=== PATIENT | male | born 1970 | race Caucasian/White ===

== ENCOUNTER 2020-06-04 14:00 | Outpatient (CLI) | payer OTHER, SELFPAY | END 2020-06-04 14:01 | disposition home or self-care (01) | LOC: ANHSURGERY 14:03 | PROVIDERS: PCP Internal Medicine; Visit Provider Urology | DX: R31.0 Gross hematuria (principal); Z01.818 Encounter for other preprocedural examination | CPT/HCPCS: 87086 ==

== ENCOUNTER → 2020-06-05 00:37 | Outpatient (CLI) | payer OTHER, SELFPAY ==
[2020-06-05 20:47] LABS: SARS-CoV-2 RNA PCR Negative
== END ==
PROVIDERS: PCP Internal Medicine; Visit Provider Urology
DX: Z01.812 Encounter for preprocedural laboratory examination (principal); Z20.822 Contact with and (suspected) exposure to COVID-19
CPT/HCPCS: C9803; U0003; U0005

== ENCOUNTER 2020-06-08 01:52 | Day surgery (SDC) | payer OTHER, SELFPAY ==
[2020-06-01 15:08] VITALS: BMI 24.9
--- NOTE | 2020-06-07 16:10 | WPDANESEPPF ---
Anes - Initial Pre Proc Eval Procedure: Operation Date: 06/08/20 14:00 Proposed Procedures p Meatotomy, - Amish Villegas MD s Flexible Cystoscopy - Amish Villegas MD Date/Time: 06/07/20 16:10 Surgeon: Amish Villegas MD Pre Op Diagnosis: meatal stenosis, gross hematuria Patient Data Age: 50 Gender: M Height: 1.65 m Weight: 68 kg Allergies Allergy/AdvReac Type Severity Reaction Status Date / Time aspirin Allergy Severe Anaphylactic Verified 06/08/20 11:57 Shock NSAIDS (Non-Steroidal Allergy Severe Anaphylactic Verified 06/08/20 11:57 Anti-Inflamma Shock Sulfa (Sulfonamide Allergy Severe Anaphylactic Verified 06/08/20 11:57 Antibiotics) Shock latex Allergy Mild Itching Verified 06/08/20 11:57 Home Medications Medication Instructions Recorded Confirmed Type albuterol sulfate 1 puff INHALATION QID PRN 06/01/20 06/01/20 History multivitamin 1 tablet PO DAILY 06/01/20 06/08/20 History Patient hx anesthesia problems: none Family hx anesthesia problems: none [facility] Past Medical History Medical History (Updated 06/07/20 @ 16:11 by Tadeo Wen MD) Arthritis Asthma Social History Social History Smoking status: Never smoker Alcohol intake: current Alcohol use details: RARE Substance use: never Substance use type: does not use Living arrangements: alone Spiritual care concerns: No Anes - Eval Final PreProcedure Day of Procedure 06/07/20 16:10 Patient weight: normal Heart: regular rate and rhythm Lungs: clear to auscultation and normal air movement Airway: Mallampati scale class II Neurological: alert and oriented Last oral intake: >/= 8 hours ASA classification: II Emergent: no Anesthetic plan: proceed Anesthesia type and monitoring: general LMA Informed Consent: The patient's anesthetic plan and its attendant risks and benefits were discussed with the patient/family/POA. Questions were solicited and answers provided to the satisfaction of the patient/family/POA.
[2020-06-08] VITALS (7 sets, daily range): BP systolic 97–141; BP diastolic 61–97; PULSE 53–65; RESP 10–16; TEMP 37–37.3; O2SAT 99–100
--- NOTE | 2020-06-08 11:47 | WPDHPUPDATE1 ---
History and Physical Update Update Date/Time: 06/08/20 11:47 History and Physical has been reviewed, including an updated exam of the patient. There are NO changes in the patient's condition. Risks, benefits, and alternatives have been discussed and questions answered. Patient agrees to proceed with procedure.
[2020-06-08] MEDS: LACTATED RINGERS 1,000 ML 30 ML IV CONT (12:19)
[2020-06-08] MEDS: ceFAZolin 2 GM/D5W 50 ML 2 GM/50 ML BAG IVPB (12:49)
[2020-06-08] MEDS: BUPIVACAINE HCL 0.5% PF 30 ML VIAL INFILTRATE (13:11)
[2020-06-08] MEDS: NEOMYCIN/POLYMYXIN/BACITRACIN OINTMENT 15 GM TUBE 1 APPLIC TOPICAL (13:20)
--- NOTE | 2020-06-08 13:21 | P.OP_ITS ---
Procedure Note - Detailed Date of procedure: 06/08/20 Pre-op diagnosis: meatal stenosis, gross hematuria Post-op diagnosis: same Procedure performed: Meatotomy, urethral dilation, flexible cystoscopy Description of procedure: Patient is taken the operative suite and correctly identified. Once anesthesia was obtained was placed in supine position and prepped and draped usual sterile fashion. Patient has a very tight urethral meatus. We went ahead and incised this. We reapproximated the mucosa using 3 0 chromic in interrupted fashion. We then calibrated urethral opening up to 20 Canadian without difficulty. Sixteen Canadian scope was then inserted into the urethra. There were no proximal strictures noted. Prostate nonobstructive. Bladder is inspected in its entirety. There are no tumors or irregularities noted at this time. Scope was removed. We anesthetized doing a penile block with 1% lidocaine. Patient is taken recovery room stable condition. He will follow up in the office 2-3 weeks time. Anesthesia: GLMA Surgeon: Amish Villegas MD Drains: No Packing: No Pathology: none sent Complications: No immediate complications Condition: stable Disposition: PACU
--- NOTE | 2020-06-08 15:13 | SUR.PHASEII ---
PATIENT VOIDED X 1 WITH BLOOD ONLY AT END OF STREAM; MINOR BURNING.
== END 2020-06-08 15:02 | disposition home or self-care (01) ==
PROVIDERS: PCP Internal Medicine; Visit Provider Urology
PROC: (CPT 54161; principal; 2020-06-08 14:00)
PROC: 0TJB8ZZ Inspection of Bladder, Via Natural or Artificial Opening Endoscopic (ICD-10-PCS; CPT 52000; 2020-06-08 14:00)
DX: N35.811 Other urethral stricture, male, meatal (principal); R31.0 Gross hematuria; J45.909 Unspecified asthma, uncomplicated; Z79.51 Long term (current) use of inhaled steroids
CPT/HCPCS: 52281; A9270; J0690; J1100; J2250; J2405; J2704; J3010; J7030; J7120

== ENCOUNTER 2024-05-12 02:08 | Day surgery (SDC) | payer OTHER, SELFPAY ==
[2024-05-03 15:59] VITALS: BMI 25.8
--- OUTSIDE RECORDS SUMMARY | 2024-05-12 02:11 | XMS_ITS | Clinical Summary ---
Author Organization [facility] Address [address] [place] [address] Phone Care Team Providers Care Integration Engineer Name Role Phone Unavailable Primary Care Provider Unavailabl e Allergies Active Allergy Reactions Criticality Noted Date Comments Ibuprofen Other (see Comments) Swollen face, lips Medications Acetaminophen (TYLENOL PO) Take by mouth as needed. 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 Gender Identity Not on file Sexual Orientation Not on file Plan of Treatment Health Maintenance Due Date Last Done Comments Hepatitis C Virus (HCV) Screening 1970 TdaP Immunization 1970 Hepatitis B Immunization (1 of 3 - 19+ 3-dose series) 04/30/1990 Colonoscopy 04/30/2016 Colorectal Cancer Screening 04/30/2016 Cologuard 04/30/2021 Immunochemical Fecal Occult Blood 04/30/2021 Pneumococcal Immunization (5 0+ years) (1 of 1 - PCV) 04/30/2021 Zoster Immunization (1 of 2) 04/30/2021 Influenza Immunization (#1) 2023 SARS-COV-2 Immunization ( - 2023- season) 2023 Respiratory Syncytial Virus (RSV) Immunization (Adult) (1 - 1-dose 75+ series) 04/30/2046 Meningococcal Immunization (ACWY) Aged Out No longer eligible based on patient's age to complete this topic Pneumococcal Immunization Combined Aged Out No longer eligible based on patient's age to complete this topic Rotavirus Immunization Aged Out No lo nger eligible based on patient's age to complete this topic
--- OUTSIDE RECORDS SUMMARY | 2024-05-12 02:11 | XMS_ITS | Clinical Summary ---
Author Organization [facility] Address [address] [place] [id number] Care Team Providers Care Leverman Name Role Phone Unavailable Primary Care Provider Unavailabl e Social History Tobacco Use Types Packs/Day Years Used Date Smoking Tobacco: Never Assessed Sex and Gender Information Value Date Recorded Sex Assigned at Not on file Legal Sex Male 4:33 PM CDT Gender Identity Not on file Sexual Orientation Not on file Plan of Treatment Health Maintenance Due Date Last Done Comments Colorectal Cancer Screening Colonoscopy (10 Years) 1971 Annual Physical 04/30/1974 Hepatitis C 04/30/1989 DTaP, Tdap and Td Vaccines ( 1 - Tdap) 04/30/1990 Hepatitis B Vaccines (1 of 3 - 19+ 3-dose series) 04/30/1990 Zoster Vaccines (1 of 2) 04/30/2021 COVID-19 Vaccine (1 - 2023-2 5 season) 2023 Meningococcal B Vaccine Aged Out No l onger eligible based on patient's age to complete this topic Meningococcal Vaccine Aged Out No alexys juan eligible based on patient's age to complete this topic Pneumococcal Vaccine: Pediat rics (0 to 5 Years) and At-Risk Patients (6 to 64 Years) Aged Out No longer eligible b ased on patient's age to complete this topic RSV Immunizations Under 20 Months Aged Out No longer eligible based on patient's age to complete this topic
[2024-05-12 11:39] VITALS: BP 173/103; PULSE 62; RESP 18; TEMP 36.6; O2SAT 100; BMI 27.5
[2024-05-12] MEDS: LACTATED RINGERS 1,000 ML 150 ML IV CONT (11:49)
--- NOTE | 2024-05-12 12:03 | P.PNAN_ITS ---
Anes - Initial Pre Proc Eval Procedure: Operation Date: 05/12/24 13:00 Proposed Procedures p Colonoscopy - Jeremie Mishra MD Date/Time: 05/12/24 12:03 Surgeon: Jeremie Mishra MD Pre Op Diagnosis: screening colon/rectum, abn findings on medical ex Patient Data Age: 54 Gender: M Height: 1.65 m Weight: 75.1 kg Last Vital Signs Temp 36.6 C 05/12/24 11:39 Pulse 62 05/12/24 11:39 Resp 18 05/12/24 11:39 BP 173/103 H 05/12/24 11:39 Pulse Ox 100 05/12/24 11:39 O2 Del Method Room Air 05/12/24 11:39 Allergies Allergy/AdvReac Type Severity Reaction Status Date / Time aspirin Allergy Severe Anaphylactic Verified 05/12/24 11:39 Shock NSAIDS (Non-Steroidal Allergy Severe Anaphylactic Verified 05/12/24 11:39 Anti-Inflamma Shock Sulfa (Sulfonamide Allergy Severe Anaphylactic Verified 05/12/24 11:39 Antibiotics) Shock latex Allergy Mild Itching Verified 05/12/24 11:39 Home Medications ?Medication ?Instructions ?Recorded ?Confirmed ?Type albuterol sulfate 90 mcg/actuation 1 puff inhalation QID PRN 06/01/20 05/03/24 History aerosol inhaler Bronchospasm multivitamin 1 tablet PO DAILY 06/01/20 05/12/24 History cholecalciferol (vitamin D3) 25 25 mcg PO DAILY 02/11/24 05/12/24 History mcg (1,000 unit) capsule zinc gluconate 30 mg tablet 30 mg PO DAILY 02/11/24 05/12/24 History atorvastatin 20 mg tablet (Lipitor) 20 mg PO QHS #90 tabs 04/21/24 05/12/24 Rx omeprazole 20 mg capsule,delayed 20 mg PO DAILY 05/03/24 05/12/24 History release Patient hx anesthesia problems: none Family hx anesthesia problems: none Results Review: All pre-operative results and documents have been reviewed as part of the pre- operative evaluation. [facility] Past Medical History Medical History Allergies Arthritis Asthma Surgical History Surgical History History of meatotomy of ureter Family History Family History Father Diabetes mellitus Cerebrovascular accident Mother Hypertension Social History Social History Social History: 02/26/24 very confident with insurance cards Smoking status: Never smoker Alcohol intake: never Alcohol use details: RARE Substance use: never Substance use type: does not use Do You Feel Safe in your Home?: Yes Lack of Transportation: No Lack of Food: Never True Current Housing: I Have Housing Concerned About Future Housing: No Difficulty Paying Gas/Electric Bills: No Difficulty Paying for Meds: No Currently Unemployed: Decline to Answer Education: Master's Degree or Higher Difficulty w/ Childcare or Family Care: No Living arrangements: alone Occupation/Education: occupation Spiritual care concerns: No Agree to blood products: Yes Anes - Eval Final PreProcedure Day of Procedure 05/12/24 12:03 Patient weight: overweight Heart: regular rate and rhythm Lungs: clear to auscultation Airway: Mallampati scale class II Neurological: alert and oriented Last oral intake: >/= 8 hours ASA classification: II Emergent: no Anesthetic plan: proceed Anesthesia type and monitoring: general GIVS and standard monitoring Results Review: All pre-operative results and documents have been reviewed as part of the pre- operative evaluation. Patient states exercise induced asthma, avid cyclist, rarely needs to use inhaler. Informed Consent: The patient's anesthetic plan and its attendant risks and benefits were discussed with the patient/family/POA. Questions were solicited and answers provided to the satisfaction of the patient/family/POA.
--- NOTE | 2024-05-12 12:04 | PM.IMHP ---
H&P: HPI History of Present Illness Date/Time: 05/12/24 12:04 Chief Complaint: Screening colonoscopy Narrative: This is the patient's first colonoscopy. There are no GI symptoms and there is no family history of colorectal cancer. Review of Systems Review of Systems: All systems reviewed & are unremarkable except as noted in HPI and below PMFSH Past Medical History Medical History Allergies Arthritis Asthma Surgical History Surgical History History of meatotomy of ureter Family History Family History Father Diabetes mellitus Cerebrovascular accident Mother Hypertension Social History Social History Social History: 02/26/24 very confident with insurance cards Smoking status: Never smoker Alcohol intake: never Alcohol use details: RARE Substance use: never Substance use type: does not use Do You Feel Safe in your Home?: Yes Lack of Transportation: No Lack of Food: Never True Current Housing: I Have Housing Concerned About Future Housing: No Difficulty Paying Gas/Electric Bills: No Difficulty Paying for Meds: No Currently Unemployed: Decline to Answer Education: Master's Degree or Higher Difficulty w/ Childcare or Family Care: No Living arrangements: alone Occupation/Education: occupation Spiritual care concerns: No Agree to blood products: Yes Meds Home Medications and Allergies Home Medications ?Medication ?Instructions ?Recorded ?Confirmed ?Type albuterol sulfate 90 mcg/actuation 1 puff inhalation QID PRN 06/01/20 05/03/24 History aerosol inhaler Bronchospasm multivitamin 1 tablet PO DAILY 06/01/20 05/12/24 History cholecalciferol (vitamin D3) 25 25 mcg PO DAILY 02/11/24 05/12/24 History mcg (1,000 unit) capsule zinc gluconate 30 mg tablet 30 mg PO DAILY 02/11/24 05/12/24 History atorvastatin 20 mg tablet (Lipitor) 20 mg PO QHS #90 tabs 04/21/24 05/12/24 Rx omeprazole 20 mg capsule,delayed 20 mg PO DAILY 05/03/24 05/12/24 History release Allergies Allergy/AdvReac Type Severity Reaction Status Date / Time aspirin Allergy Severe Anaphylactic Verified 05/12/24 11:39 Shock NSAIDS (Non-Steroidal Allergy Severe Anaphylactic Verified 05/12/24 11:39 Anti-Inflamma Shock Sulfa (Sulfonamide Allergy Severe Anaphylactic Verified 05/12/24 11:39 Antibiotics) Shock latex Allergy Mild Itching Verified 05/12/24 11:39 Vital Signs Vital Signs - 24 hr 05/12/24 11:39 Temperature 98 F Pulse Rate 62 Respiratory Rate 18 Blood Pressure 173/103 H Pulse Oximetry 100 Oxygen Delivery Room Air Exam Const: General: cooperative and healthy appearing Resp: Effort & Inspection: normal respiratory effort and able to speak in complete sentences Auscultation: clear to auscultation bilaterally Cardio: Rate: regular rate Rhythm: regular rhythm GI: Inspection: normal to inspection GI Palp: No No hepatosplenomegaly present Auscultation: normal bowel sounds Rectal Exam: deferred Skin: General skin exam: normal color Psych: Appearance: grossly normal Mental Status: mental status grossly normal Assessment and Plan Assessment and plan (1) Encounter for screening colonoscopy: Code(s): Z12.11 - Encounter for screening for malignant neoplasm of colon Status: Acute Assessment and Plan: The patient is deemed a good candidate for the procedure. Consent signed. Will proceed.
[2024-05-12 12:28] VITALS: BP 104/70; PULSE 71; RESP 20; O2SAT 98
[2024-05-12 12:38] VITALS: BP 119/84; PULSE 65; RESP 20; O2SAT 100
[2024-05-12 12:48] VITALS: BP 135/95; PULSE 61; RESP 20; O2SAT 100
== END 2024-05-12 13:08 | disposition home or self-care (01) ==
PROVIDERS: PCP Physician Assistant Medical; Referring Provider Physician Assistant Medical; Visit Provider Internal Medicine Gastroenterology
PROC: 0DJD8ZZ Inspection of Lower Intestinal Tract, Via Natural or Artificial Opening Endoscopic (ICD-10-PCS; CPT 45378; principal; 2024-05-12 13:00)
DX: Z12.11 Encounter for screening for malignant neoplasm of colon (principal); J45.909 Unspecified asthma, uncomplicated
CPT/HCPCS: 45378; J2003; J2704; J7120